=== PATIENT | female | born 1935 | race Caucasian/White ===

== ENCOUNTER 2020-10-14 17:41 | Inpatient (IN) | payer MEDICARE, MEDICAID ==
[~2020-10-14] VITALS: Ht 160 cm; Wt 95.5 kg
[2020-10-14 18:59] LABS: BASOPHILS % (AUTO) 0.3 % (0-1); EOSINOPHILS % (AUTO) 0.1 % (0-6); HEMATOCRIT 44.7 % (35.0-45.0); HEMOGLOBIN 14.8 g/dl (12.0-16.0); LYMPHOCYTES # (AUTO) 0.7 X10'3 (1.1-4.8); LYMPHOCYTES % (AUTO) 6.7 % (21-51); MEAN CORPUSCULAR HEMOGLOBIN 30.6 PG (27.0-31.0); MEAN CORPUSCULAR HGB CONC 33.1 g/dL (33.0-36.5); MEAN CORPUSCULAR VOLUME 92.4 FL (78-98); MEAN PLATELET VOLUME 10.2 FL (7.4-10.4); MONOCYTES # (AUTO) 1.1 X10'3 (0-0.9); MONOCYTES % (AUTO) 10.2 % (2-12); NEUTROPHILS % (AUTO) 82.7 % (42-75); PLATELET COUNT 193 X10'3 (140-440); RED BLOOD COUNT 4.84 X10'6 (4.20-5.60); RED CELL DISTRIBUTION WIDTH 14.4 % (11.5-14.5); WHITE BLOOD COUNT 10.9 X10'3 (4.5-11.0)
[2020-10-14 19:11] LABS: PARTIAL THROMBOPLASTIN TIME 25 SECONDS (22-32)
[2020-10-14 19:14] LABS: ANION GAP 9 (8-16); BLOOD UREA NITROGEN 7 MG/DL (7-18); BUN/CREATININE RATIO 8.5 (6.6-38.0); CHLORIDE 105 MMOL/L (99-107); CREATININE 0.82 MG/DL (0.40-0.90); GLUCOSE 123 MG/DL (70-104); POTASSIUM 3.4 MMOL/L (3.5-5.1); SODIUM 141 MMOL/L (135-145); TOTAL CARBON DIOXIDE 26.9 MMOL/L (24-32)
[2020-10-14 19:15] LABS: ALANINE AMINOTRANSFERASE 260 U/L (12-78); ALBUMIN 3.1 G/DL (3.4-5.0); ALBUMIN/GLOBULIN RATIO 0.7 (1.1-1.5); ALKALINE PHOSPHATASE 349 IU/L (46-116); ASPARTATE AMINO TRANSFERASE 124 U/L (10-37); BILIRUBIN,TOTAL 3.7 MG/DL (0.1-1.0); TOTAL PROTEIN 7.3 G/DL (6.4-8.2); eGFR 67 ML/MIN
[2020-10-14] MEDS ORDERED: HYDROmorphone 1 mg/ml syringe IV ONE (19:40)
[2020-10-14] MEDS ORDERED: proCHLORperazine 10 MG/2 ml inj IV ONE (19:40)
--- NOTE | 2020-10-14 19:46 | NUR ---
SPOKE TO DR. TYSON REGARDING PT BLOOD PRESSURE BEING 199/103. HE STATES UNDERSTANDING AND STATES HE WILL ADDRESS IT SHORTLY BUT AT THIS TIME WANTS A VERBAL ORDER OF 1MG DILUADID AND 10MG COMPAZINE
[2020-10-14] MEDS ORDERED: temazepam 15mg capsule PO PRN (21:00)
--- NOTE | 2020-10-14 21:33 | NUR ---
PT IS RESTING QUIETLY ON GURNEY, RESP EVEN AND UNLABORED, WAITING TO BE EVALUATED BY HOSPITALIST
[2020-10-14] MEDS ORDERED: HYDROcodone/acetaminophen 5mg/325mg tablet PO PRN (21:50)
[2020-10-14] MEDS ORDERED: ondansetron/PF 4mg/2ml inj IV PRN (21:50)
[2020-10-14] MEDS ORDERED: acetaminophen 325mg tablet PO PRN ×2 (21:50)
[2020-10-14] MEDS ORDERED: potassium Cl 20 mEq SR tablet PO PRN ×2 (21:50)
[2020-10-14] MEDS ORDERED: morphine 2 MG/ML inj. syringe IV PRN ×2 (21:50)
[2020-10-14] MEDS ORDERED: magnesium 4gm in 100ml NS 100 ML IV PRN (21:50)
[2020-10-14] MEDS ORDERED: magnesium Cl slow-release 64mg tablet PO PRN (21:50)
[2020-10-14] MEDS ORDERED: potassium Cl 40MEQ/1/2NS 520ml 520 ML IV PRN ×2 (21:50)
[2020-10-14] MEDS ORDERED: magnesium 2GM in 50ml NS 50 ML IV PRN (21:50)
[2020-10-14] MEDS ORDERED: pantoprazole 40 MG vial IV SCH (21:55)
[2020-10-14] MEDS: normal saline 1000ml 1,000 ML IV SCH (23:06)
[2020-10-14] MEDS: piperacillin/tazo 3.375gm/50ml 50 ML IV SCH (23:06)
[2020-10-15] VITALS (11 sets, daily range): BP systolic 104–186; BP diastolic 59–96
--- NOTE | 2020-10-15 00:20 | NUR ---
PATIENT ADMITTED TO ROOM 348B FROM ER FOR ABDOMINAL PAIN AND BILE DUCT STONE. PLACED COMFORTABLE IN BED. VITAL SIGNS TAKEN AND RECORDED.
[2020-10-15 01:23] LABS: CLARITY,URINE CLEAR (Clear); COLOR,URINE AMBER (Yellow); GLUCOSE, URINE NEGATIVE (Neg); KETONES,URINE >=80 mg/dl (Neg); LEUKOCYTE ESTERASE ,URINE NEGATIVE (Neg); NITRITES, URINE NEGATIVE (Neg); OCCULT BLOOD,URINE SMALL (Neg); PH,URINE 5.5 (4.8-8.0); PROTEIN,URINE 30 mg/dl (Neg)
[2020-10-15 01:44] LABS: UA COLLECTION TYPE VOIDED
[2020-10-15 01:46] LABS: BACTERIA,URINE NONE SEEN /HPF (Neg); MUCUS STRANDS FEW /LPF (Neg); SQUAMOUS EPITHELIAL CELL,UR FEW /LPF (FEW); WBC,URINE 0-4 /HPF (0-4)
--- NOTE | 2020-10-15 06:14 | NUR ---
Problems reprioritized. Patient report given, questions answered & plan of care reviewed with LEOBARDO KIRAN.
[2020-10-15 07:05] LABS: BASOPHILS % (AUTO) 0.2 % (0-1); EOSINOPHILS % (AUTO) 0.1 % (0-6); HEMATOCRIT 39.4 % (35.0-45.0); HEMOGLOBIN 13.1 g/dl (12.0-16.0); LYMPHOCYTES # (AUTO) 1.1 X10'3 (1.1-4.8); LYMPHOCYTES % (AUTO) 13.5 % (21-51); MEAN CORPUSCULAR HEMOGLOBIN 30.2 PG (27.0-31.0); MEAN CORPUSCULAR HGB CONC 33.2 g/dL (33.0-36.5); MEAN CORPUSCULAR VOLUME 90.9 FL (78-98); MEAN PLATELET VOLUME 10.4 FL (7.4-10.4); MONOCYTES % (AUTO) 11.7 % (2-12); NEUTROPHILS # (AUTO) 6.2 X10'3 (1.8-7.7); NEUTROPHILS % (AUTO) 74.5 % (42-75); PLATELET COUNT 170 X10'3 (140-440); RED BLOOD COUNT 4.33 X10'6 (4.20-5.60); RED CELL DISTRIBUTION WIDTH 14.1 % (11.5-14.5); WHITE BLOOD COUNT 8.3 X10'3 (4.5-11.0)
[2020-10-15 07:14] LABS: ALANINE AMINOTRANSFERASE 226 U/L (12-78); ALBUMIN 2.6 G/DL (3.4-5.0); ALBUMIN/GLOBULIN RATIO 0.8 (1.1-1.5); ALKALINE PHOSPHATASE 343 IU/L (46-116); ANION GAP 9 (8-16); ASPARTATE AMINO TRANSFERASE 122 U/L (10-37); BILIRUBIN,TOTAL 3.7 MG/DL (0.1-1.0); BLOOD UREA NITROGEN 9 MG/DL (7-18); BUN/CREATININE RATIO 10.3 (6.6-38.0); CALCIUM 8.5 MG/DL (8.5-10.1); CHLORIDE 108 MMOL/L (99-107); CHOL/HDL RATIO 2.8 (0.00-4.99); CHOLESTEROL 133 MG/DL (0-200); CREATININE 0.87 MG/DL (0.40-0.90); GLUCOSE 83 MG/DL (70-104); HDL CHOLESTEROL 47 MG/DL (35-60); LDL CHOLESTEROL 47 MG/DL (50-100); MAGNESIUM 1.9 MG/DL (1.5-2.4); POTASSIUM 3.4 MMOL/L (3.5-5.1); SODIUM 145 MMOL/L (135-145); TOTAL CARBON DIOXIDE 27.7 MMOL/L (24-32); TRIGLYCERIDES 61 MG/DL (20-135); eGFR 62 ML/MIN
[2020-10-15] MEDS: K and/or MAG REPLACEMENT MC SCH ×2 (08:47→20:00)
[2020-10-15] MEDS: normal saline 1000ml 1,000 ML IV SCH ×3 (08:48→21:30)
[2020-10-15] MEDS: piperacillin/tazo 3.375gm/50ml 50 ML IV SCH ×2 (08:48→17:36)
[2020-10-15] MEDS: heparin, porcine 5000 units/ml vial SQ SCH ×2 (08:50→21:19)
[2020-10-15] MEDS ORDERED: PANT40TA54 PO (09:06)
[2020-10-15] MEDS ORDERED: ROSU20TA31 PO (09:06)
--- NOTE | 2020-10-15 09:10 | NUR ---
PAGER ID: [phone] MESSAGE: Humera Ballesteros 348Q Please address home medications, also pt. has dry persistent cough, and no ERCP ordered? Kymberly [id number]
--- NOTE | 2020-10-15 12:49 | NUR ---
PAGER ID: [phone] MESSAGE: Humera Favian 348N Does this pt. have to stay NPO? She is very upset she can n0t eat. Kymberly [id number]
--- NOTE | 2020-10-15 13:52 | NUR ---
Malnutrition Consult: Pt admit DX abdominal pain w/ elevated LFT's secondary to choledocholithiasis per MD note. Hx few episodes of N/V since pain started on 10/10 per EMR. Pt has normal strength, no edema, pending scaled wt this admit w/ reported wt making BMI 37. Pt lacks minimum malnutrition criteria at this time. Will monitor for additional malnutrition criteria this admit. Addendum: 10/15/20 at [address] Amended: Links added.
--- NOTE | 2020-10-15 14:00 | NUR ---
PT. OFF FLOOR TO ERCP
[2020-10-15] MEDS ORDERED: LIDOcaine Viscous 15ml cup ONE (14:36)
[2020-10-15] MEDS ORDERED: proCHLORperazine 10 MG/2 ml inj ONE (14:36)
[2020-10-15] MEDS ORDERED: fentaNYL/PF 50MCG/1 ML 2ML syringe ONE (14:36)
[2020-10-15] MEDS ORDERED: MIDAZolam 1 MG/ML 5ML VIAL ONE (14:36)
[2020-10-15] MEDS ORDERED: glucagon, human recombinant 1mg kit ONE (14:37)
[2020-10-15] MEDS ORDERED: iohexol 300 MG/1 ML 50ml polymer ONE ×2 (14:37→15:40)
[2020-10-15] MEDS ORDERED: epiNEPHrine 0.1mg/ml 10ml syringe ONE (15:48)
--- NOTE | 2020-10-15 17:30 | NUR ---
PT. RETURNED FROM ERCP. GI LAB STATES THAT THEY CLEARED "SOME DEBRE AND AND PUSS". CL DIET FOR AM, BUT ICE CHIPS OK FOR TONIGHT.
--- NOTE | 2020-10-15 18:36 | NUR ---
Gave report to Sabiha Landis RN.
--- NOTE | 2020-10-15 18:38 | NUR ---
Patient in room [facility]. I have received report from LEOBARDO KIRAN and had the opportunity to ask questions and assume patient care.
[2020-10-15] MEDS: pantoprazole 40 MG vial IV SCH (21:18)
[2020-10-16] VITALS (14 sets, daily range): BP systolic 107–182; BP diastolic 56–104
[2020-10-16] MEDS: piperacillin/tazo 3.375gm/50ml 50 ML IV SCH ×3 (01:44→16:00)
[2020-10-16 06:30] LABS: BASOPHILS % (AUTO) 0.3 % (0-1); EOSINOPHILS % (AUTO) 0.5 % (0-6); HEMATOCRIT 38.3 % (35.0-45.0); HEMOGLOBIN 12.5 g/dl (12.0-16.0); LYMPHOCYTES % (AUTO) 13.5 % (21-51); MEAN CORPUSCULAR HEMOGLOBIN 30.3 PG (27.0-31.0); MEAN CORPUSCULAR HGB CONC 32.7 g/dL (33.0-36.5); MEAN CORPUSCULAR VOLUME 92.6 FL (78-98); MEAN PLATELET VOLUME 10.3 FL (7.4-10.4); MONOCYTES # (AUTO) 0.6 X10'3 (0-0.9); MONOCYTES % (AUTO) 8.3 % (2-12); NEUTROPHILS # (AUTO) 5.8 X10'3 (1.8-7.7); NEUTROPHILS % (AUTO) 77.4 % (42-75); PLATELET COUNT 178 X10'3 (140-440); RED BLOOD COUNT 4.14 X10'6 (4.20-5.60); RED CELL DISTRIBUTION WIDTH 14.7 % (11.5-14.5); WHITE BLOOD COUNT 7.5 X10'3 (4.5-11.0)
--- NOTE | 2020-10-16 06:30 | NUR ---
Problems reprioritized. Patient report given, questions answered & plan of care reviewed with LEOBARDO KIRAN.
[2020-10-16 06:48] LABS: ALANINE AMINOTRANSFERASE 223 U/L (12-78); ALBUMIN 2.4 G/DL (3.4-5.0); ALKALINE PHOSPHATASE 421 IU/L (46-116); ANION GAP 9 (8-16); ASPARTATE AMINO TRANSFERASE 138 U/L (10-37); BILIRUBIN,TOTAL 4.7 MG/DL (0.1-1.0); BLOOD UREA NITROGEN 10 MG/DL (7-18); BUN/CREATININE RATIO 13.3 (6.6-38.0); CALCIUM 8.4 MG/DL (8.5-10.1); CHLORIDE 110 MMOL/L (99-107); CREATININE 0.75 MG/DL (0.40-0.90); GLUCOSE 70 MG/DL (70-104); MAGNESIUM 1.9 MG/DL (1.5-2.4); POTASSIUM 4.1 MMOL/L (3.5-5.1); SODIUM 144 MMOL/L (135-145); TOTAL CARBON DIOXIDE 25.1 MMOL/L (24-32); eGFR 74 ML/MIN
[2020-10-16 06:51] LABS: ALBUMIN/GLOBULIN RATIO 0.7 (1.1-1.5); TOTAL PROTEIN 5.8 G/DL (6.4-8.2)
[2020-10-16] MEDS: K and/or MAG REPLACEMENT MC SCH ×2 (08:00→20:00)
[2020-10-16] MEDS ORDERED: sincalide inj 1.9 MCG in normal saline 50ml IV soln 50 ML IV ONE (09:10)
[2020-10-16] MEDS: heparin, porcine 5000 units/ml vial SQ SCH ×2 (10:28→22:20)
--- NOTE | 2020-10-16 10:47 | NUR ---
Called [facility]. Medication for hyda not available until tomorrow. Eh aware and ok with per tech.
--- NOTE | 2020-10-16 11:58 | NUR ---
Surinder rounded on pt. May take pt. for gallbladder removal depending on lipase level. See new orders.
[2020-10-16 12:46] LABS: LIPASE 4347 U/L (73-393)
[2020-10-16] MEDS ORDERED: BUPIVAcaine 0.5% inj/PF 30 ML ONE (13:23)
[2020-10-16] MEDS: ringers solution, lacted 1,000 ML IV SCH (13:50)
[2020-10-16] MEDS ORDERED: famotidine/PF 10 mg/ml inj IV ONE (13:50)
[2020-10-16] MEDS ORDERED: HYDROmorphone/PF 0.2 MG/ML SYRINGE IV PRN (14:05)
[2020-10-16] MEDS ORDERED: hydrALAZINE 20mg/ml inj. IV PRN (14:05)
[2020-10-16] MEDS ORDERED: ringers solution, lacted 1,000 ML IV ONE (14:05)
[2020-10-16] MEDS ORDERED: labetalol 20mg/4ml (5mg/ml) syringe IV PRN (14:05)
[2020-10-16] MEDS ORDERED: morphine 2 MG/ML inj. syringe IV PRN ×2 (14:05→14:55)
[2020-10-16] MEDS ORDERED: ondansetron/PF 4mg/2ml inj IV PRN ×2 (14:05→14:55)
[2020-10-16] MEDS ORDERED: fentaNYL/PF 50MCG/1 ML 2ML syringe IV PRN ×2 (14:05)
[2020-10-16] MEDS ORDERED: ringers solution, lacted 1,000 ML IV SCH ×2 (14:05→14:55)
[2020-10-16] MEDS ORDERED: morphine 4 MG/ML inj SYRINge IV PRN ×2 (14:05→14:55)
[2020-10-16] MEDS: normal saline 1000ml 1,000 ML IV SCH ×2 (14:23→23:50)
--- NOTE | 2020-10-16 14:35 | NUR ---
Pt. taken to OR.
[2020-10-16] MEDS ORDERED: neostigmine methylsulfate 1 MG/ML 10ml vial ONE (14:47)
[2020-10-16] MEDS ORDERED: sevoflurane 250ml liquid IH ONE (14:47)
[2020-10-16] MEDS ORDERED: ondansetron/PF 4mg/2ml inj ONE (14:47)
[2020-10-16] MEDS ORDERED: desflurane 240ml liquid inh. IH ONE (14:47)
[2020-10-16] MEDS ORDERED: glycopyrrolate 0.2mg/ml inj ONE (14:47)
[2020-10-16] MEDS ORDERED: meperidine/PF 25mg/ml syringe IV PRN ×3 (14:55)
[2020-10-16] MEDS ORDERED: proCHLORperazine 10 MG/2 ml inj IV PRN (14:55)
[2020-10-16] MEDS ORDERED: fentaNYL/PF 50MCG/1 ML 2ML syringe ONE (14:58)
[2020-10-16] MEDS ORDERED: midazolam 1 mg/ML 2ml injection ONE (14:59)
--- NOTE | 2020-10-16 15:00 | NUR ---
ASSUME CARE VSS NO DISTRESS, 10L FM IN PLACE SAT 100% NOTED MOIST COUGH. DR GOMEZ AWARE. PT BP ELEVATED DR GOMEZ AWARE NO NEW ORDERS. IV TO RIGHT AC 20 PATIENT IVF INFUSING WITHOUT DIFF. LAP SITE TO ABD CDI Addendum: 10/16/20 at 1624 by Zahra Hyatt RN Amended: Links added.
[2020-10-16] MEDS ORDERED: metoprolol tartrate 1mg/ml inj IV ONE (15:34)
[2020-10-16] MEDS ORDERED: rocuronium 10mg/ml inj IV ONE (15:34)
[2020-10-16] MEDS ORDERED: LIDOcaine 2% (20mg/ml) 5ml vial ONE (15:34)
[2020-10-16] MEDS ORDERED: propofol inj 20 ML IV ONE (15:34)
[2020-10-16] MEDS ORDERED: dexamethasone sod phosphate 4mg/ml inj. ONE (15:34)
[2020-10-16] MEDS ORDERED: acetaminophen 1,000mg/100ml IV 100 ML IV ONE (15:50)
[2020-10-16] MEDS ORDERED: sugammadex 200mg/2ml injection IV ONE (15:50)
--- NOTE | 2020-10-16 16:34 | NUR ---
PT COMFORTABLE VSS NO DISTRESS RICO POS MEETS CRITERIA TO DC TO ROOM REPORT CALLED TO QIANA ON MED SURG Addendum: 10/16/20 at 1636 by Zahra Hyatt RN Amended: Links added.
--- NOTE | 2020-10-16 16:48 | NUR ---
Pt. had gallbladder removed by Surinder, midline near umbilicus small, derma-bonded. VS stable at this time, placed on post ops. Currently on 2LPM via n/c for recovery support.
--- NOTE | 2020-10-16 18:20 | NUR ---
GAVE REPORT TO GEORGE KIRAN
--- NOTE | 2020-10-16 18:59 | NUR ---
Patient in room [facility]. I have received report from Kymberly KIRAN and had the opportunity to ask questions and assume patient care.
[2020-10-16] MEDS: HYDROcodone/acetaminophen 10/325mg tab PO PRN (22:19)
[2020-10-16] MEDS: pantoprazole 40 MG vial IV SCH (22:19)
[2020-10-16] MEDS: lactobacillus rhamnosus 10,000 MMU CELLS/CAPSULE PO SCH (22:19)
[2020-10-17 00:15] VITALS: BP 146/75
[2020-10-17] MEDS: piperacillin/tazo 3.375gm/50ml 50 ML IV SCH ×3 (00:56→17:00)
[2020-10-17 06:37] LABS: BASOPHILS % (AUTO) 0.1 % (0-1); EOSINOPHILS % (AUTO) 0 % (0-6); HEMATOCRIT 37.7 % (35.0-45.0); HEMOGLOBIN 12.4 g/dl (12.0-16.0); LYMPHOCYTES # (AUTO) 0.7 X10'3 (1.1-4.8); LYMPHOCYTES % (AUTO) 7.9 % (21-51); MEAN CORPUSCULAR HEMOGLOBIN 30.4 PG (27.0-31.0); MEAN CORPUSCULAR VOLUME 92.1 FL (78-98); MEAN PLATELET VOLUME 10.9 FL (7.4-10.4); MONOCYTES # (AUTO) 0.3 X10'3 (0-0.9); MONOCYTES % (AUTO) 2.7 % (2-12); NEUTROPHILS # (AUTO) 8.4 X10'3 (1.8-7.7); NEUTROPHILS % (AUTO) 89.3 % (42-75); PLATELET COUNT 198 X10'3 (140-440); RED BLOOD COUNT 4.09 X10'6 (4.20-5.60); RED CELL DISTRIBUTION WIDTH 15.1 % (11.5-14.5); WHITE BLOOD COUNT 9.4 X10'3 (4.5-11.0)
[2020-10-17 07:00] VITALS: BP 139/79
[2020-10-17 07:01] LABS: ALANINE AMINOTRANSFERASE 221 U/L (12-78); ALBUMIN 2.5 G/DL (3.4-5.0); ALBUMIN/GLOBULIN RATIO 0.7 (1.1-1.5); ALKALINE PHOSPHATASE 434 IU/L (46-116); ANION GAP 11 (8-16); ASPARTATE AMINO TRANSFERASE 120 U/L (10-37); BILIRUBIN,TOTAL 2.7 MG/DL (0.1-1.0); BLOOD UREA NITROGEN 7 MG/DL (7-18); BUN/CREATININE RATIO 10.6 (6.6-38.0); CALCIUM 8.7 MG/DL (8.5-10.1); CHLORIDE 105 MMOL/L (99-107); CREATININE 0.66 MG/DL (0.40-0.90); GLUCOSE 138 MG/DL (70-104); MAGNESIUM 1.8 MG/DL (1.5-2.4); POTASSIUM 4.2 MMOL/L (3.5-5.1); SODIUM 142 MMOL/L (135-145); TOTAL CARBON DIOXIDE 26.1 MMOL/L (24-32); TOTAL PROTEIN 6.3 G/DL (6.4-8.2); eGFR 86 ML/MIN
--- NOTE | 2020-10-17 07:14 | NUR ---
Problems reprioritized. Patient report given, questions answered & plan of care reviewed with Isabel KIRAN.
--- NOTE | 2020-10-17 07:17 | NUR ---
Patient in room [facility]. I have received report from David KIRAN and had the opportunity to ask questions and assume patient care.
[2020-10-17] MEDS: K and/or MAG REPLACEMENT MC SCH ×2 (08:00→19:25)
[2020-10-17] MEDS: heparin, porcine 5000 units/ml vial SQ SCH ×2 (09:02→20:47)
[2020-10-17] MEDS: lactobacillus rhamnosus 10,000 MMU CELLS/CAPSULE PO SCH ×2 (09:02→20:46)
[2020-10-17] MEDS: ringers solution, lacted 1,000 ML IV SCH ×2 (09:50→18:39)
[2020-10-17] MEDS: normal saline 1000ml 1,000 ML IV SCH (09:50)
[2020-10-17 11:00] VITALS: BP 133/63
[2020-10-17] MEDS: HYDROcodone/acetaminophen 10/325mg tab PO PRN (12:20)
--- NOTE | 2020-10-17 18:57 | NUR ---
Problems reprioritized. Patient report given, questions answered & plan of care reviewed with Lauren KIRAN.
[2020-10-17 19:00] VITALS: BP 140/71
[2020-10-17] MEDS: pantoprazole 40 MG vial IV SCH (20:46)
[2020-10-18] VITALS: BP 124/55
[2020-10-18] MEDS: piperacillin/tazo 3.375gm/50ml 50 ML IV SCH ×2 (00:42→08:10)
[2020-10-18] MEDS: HYDROcodone/acetaminophen 10/325mg tab PO PRN ×2 (00:48→12:11)
--- NOTE | 2020-10-18 06:53 | NUR ---
Patient in room [facility]. I have received report from QIANA Aguilar and had the opportunity to ask questions and assume patient care.
[2020-10-18 07:23] LABS: BASOPHILS % (AUTO) 0.2 % (0-1); EOSINOPHILS # (AUTO) 0.1 X10'3 (0-0.9); EOSINOPHILS % (AUTO) 1.2 % (0-6); HEMATOCRIT 35.9 % (35.0-45.0); HEMOGLOBIN 11.9 g/dl (12.0-16.0); LYMPHOCYTES % (AUTO) 22.2 % (21-51); MEAN CORPUSCULAR HEMOGLOBIN 30.3 PG (27.0-31.0); MEAN CORPUSCULAR HGB CONC 33.2 g/dL (33.0-36.5); MEAN CORPUSCULAR VOLUME 91.2 FL (78-98); MONOCYTES # (AUTO) 0.7 X10'3 (0-0.9); MONOCYTES % (AUTO) 7.3 % (2-12); NEUTROPHILS # (AUTO) 6.2 X10'3 (1.8-7.7); NEUTROPHILS % (AUTO) 69.1 % (42-75); PLATELET COUNT 225 X10'3 (140-440); RED BLOOD COUNT 3.94 X10'6 (4.20-5.60); RED CELL DISTRIBUTION WIDTH 14.7 % (11.5-14.5); WHITE BLOOD COUNT 8.9 X10'3 (4.5-11.0)
[2020-10-18 07:30] VITALS: BP 115/58
[2020-10-18 07:38] LABS: ALANINE AMINOTRANSFERASE 173 U/L (12-78); ALBUMIN 2.3 G/DL (3.4-5.0); ALBUMIN/GLOBULIN RATIO 0.7 (1.1-1.5); ALKALINE PHOSPHATASE 352 IU/L (46-116); ANION GAP 6 (8-16); ASPARTATE AMINO TRANSFERASE 69 U/L (10-37); BILIRUBIN,TOTAL 1.7 MG/DL (0.1-1.0); BLOOD UREA NITROGEN 6 MG/DL (7-18); CALCIUM 8.7 MG/DL (8.5-10.1); CHLORIDE 106 MMOL/L (99-107); CREATININE 0.75 MG/DL (0.40-0.90); GLUCOSE 98 MG/DL (70-104); LIPASE 122 U/L (73-393); MAGNESIUM 1.7 MG/DL (1.5-2.4); POTASSIUM 3.6 MMOL/L (3.5-5.1); SODIUM 142 MMOL/L (135-145); TOTAL CARBON DIOXIDE 29.9 MMOL/L (24-32); TOTAL PROTEIN 5.8 G/DL (6.4-8.2); eGFR 74 ML/MIN
[2020-10-18] MEDS: K and/or MAG REPLACEMENT MC SCH (08:00)
[2020-10-18] MEDS: lactobacillus rhamnosus 10,000 MMU CELLS/CAPSULE PO SCH (08:10)
[2020-10-18] MEDS: heparin, porcine 5000 units/ml vial SQ SCH (08:10)
[2020-10-18 11:00] VITALS: BP 118/59
--- NOTE | 2020-10-18 12:38 | NUR ---
Pt discharged to home, with all belongings, in private vehicle accompanied by friend. Discharge instructions and medications reviewed. No new prescriptions ordered. Pt instructed to follow up with PCP on Wednesday or of next week, and to call Dr Cadena office during said appointment. Signs/symptoms of infection reviewed with patient - with instructions to contact Dr Cadena office with any concerns. Pt stated understanding and willingness to comply with all discharge instructions. IV DC'd, cannula intact. Pt escorted to front lobby via wheelchair.
== END 2020-10-18 12:25 | disposition home or self-care (01) | DRG 417 ==
LOC: ER 17:42 → ED HOLD 21:52 → SUR 3N 10-15 00:15
PROVIDERS: ADMIT Internal Medicine; ATTEND Internal Medicine
PROC: 0F798ZZ Dilation of Common Bile Duct, Via Natural or Artificial Opening Endoscopic (ICD-10-PCS; 2020-10-15)
PROC: 0FT44ZZ Resection of Gallbladder, Percutaneous Endoscopic Approach (ICD-10-PCS; principal; 2020-10-16 14:47)
DX: K80.42 Calculus of bile duct with acute cholecystitis without obstruction (principal); K85.10 Biliary acute pancreatitis without necrosis or infection; E78.00 Pure hypercholesterolemia, unspecified; Z20.822 Contact with and (suspected) exposure to COVID-19; K83.8 Other specified diseases of biliary tract; K57.90 Diverticulosis of intestine, part unspecified, without perforation or abscess without bleeding; E87.6 Hypokalemia; E78.5 Hyperlipidemia, unspecified; R74.8 Abnormal levels of other serum enzymes; Z90.710 Acquired absence of both cervix and uterus
CPT/HCPCS: 36415; 43262; 43264; 71045; 80053; 80061; 81001; 82948; 83605; 83690; 83735; 85025; 85610; 85730; 87040; 87081; 87635; 88304; 96366; 96374; 97116; 97161; 97530; 99152; 99153; 99285; A4215; A4618; A4620; A6402; A7000; C1769; C9113; C9399; G0378; J0131; J0171; J0780; J1100; J1170; J1610; J1644; J2001; J2175; J2250; J2405; J2543; J2704; J2710; J3010; J3480; J3490; J7030; J7040; J7120; Q9967